=== PATIENT | female | born 1960 | race Two or more races ===

== ENCOUNTER 2023-10-30 21:56 | Emergency (ER) | payer OTHER, MEDICAID ==
[~2023-10-30] VITALS: Ht 157.5 cm; Wt 70.0 kg
[2023-10-30 21:58] VITALS: O2SAT 98
[2023-10-30] MEDS: HYDROCORTISONE SOD SUCCINATE 100 MG/2 ML VIAL IV ONE (22:15)
[2023-10-30] MEDS: SODIUM CHLORIDE 0.9% 1000ML BAG (SEPSIS BOLUS) IV ONE (22:32)
[2023-10-30] MEDS: PIPERACILLIN/TAZO 3.375G/50ML 50 ML IV ONE (22:32)
[2023-10-30 22:41] LABS: MEAN CORPUSCULAR HEMOGLOBIN 35.9 pg (28.0-32.0); MEAN CORPUSCULAR HGB CONC 33.7 g/dL (31.0-37.0); MEAN CORPUSCULAR VOLUME 106.5 fL (81.0-99.0); MEAN PLATELET VOLUME 10.2 fl (7.4-10.4); RED BLOOD CELL COUNT 1.06 mill/uL (4.2-5.4); RED CELL DISTRIBUTION WIDTH 21.3 % (11.6-14.6)
[2023-10-30 22:47] LABS: CHLORIDE 84 mEq/L (98-107); POTASSIUM 3.8 mEq/L (3.5-5.1); SODIUM 123 mEq/L (136-145)
[2023-10-30 22:48] LABS: CALCIUM 7.7 mg/dL (8.7-10.4); CARBON DIOXIDE 17 mEq/L (21-32); HEMATOCRIT. 11.3 % (36.0-48.0); HEMOGLOBIN. 3.8 g/dL (12.0-16.0); WHITE BLOOD COUNT 0.7 x1000/uL (4.5-11.0)
[2023-10-30 22:49] LABS: DIFFERENTIAL COMMENT 1; PLATELET 3 x1000/uL (130-400)
[2023-10-30 22:51] LABS: INR 2.6; PROTHROMBIN TIME 27.5 sec (9.6-11.0)
[2023-10-30 22:53] LABS: CREATININE 2.2 mg/dL (0.6-1.0); GLUCOSE 205 mg/dL (70-105); UREA NITROGEN BLOOD 48 mg/dL (9-23)
[2023-10-30 22:54] LABS: TROPONIN I HIGH SENSITIVITY 12 ng/L (3.0-34)
[2023-10-30 22:57] LABS: LACTIC ACID 14.2 mmol/L (0.4-2.0)
[2023-10-30 23:05] LABS: ANISOCYTOSIS 2+; PLATELET ESTIMATE MARKEDLY DECREASED
[2023-10-30 23:18] LABS: BG FRACTION INSPIRED OXYGEN 21; BG PCO2 22.9 mmHg (35.0-45.0); BG PH 7.463 (7.350-7.450); BG PO2 87.9 mmHg (75.0-100.0); BG SAMPLE SITE LEFT RADIAL; BG TOTAL HEMOGLOBIN < 4.5 g/dL (12.0-18.0); BG VENT MODE ROOM AIR
[2023-10-31 00:05] LABS: AMMONIA 28 uMol/L (<32)
[2023-10-31 04:30] VITALS: TEMP 97.5
[2023-10-31 05:25] VITALS: BP 80/41; PULSE 86; RESP 18
== END 2023-10-31 05:50 | disposition home or self-care (01) ==
LOC: ER 21:56 → EDBEDREQDT 10-31 00:05 → EDBEDREQSVC 10-31 00:05 → EDBEDREQTM 10-31 00:05 → EDBEDREQ 10-31 00:05 → ER 10-31 05:50
DX: C56.9 Malignant neoplasm of unspecified ovary (principal); M35.81 Multisystem inflammatory syndrome; D61.818 Other pancytopenia
CPT/HCPCS: 99285; 96365; 71045; 96375; 80048; 82140; 82962; 83605; 83690; 85025; 85610; 86850; 86900; 86901; 86920; 87040; 84484; 84145; 82375; 93005; 36600; 86927; 36415; J1720; J2543; J7030; P9016; P9017